=== PATIENT | female | born 1950 | race Two or more races ===

== ENCOUNTER 2024-01-05 14:35 | Inpatient (IN) | payer MEDICARE, OTHER ==
[~2024-01-05] VITALS: Ht 160 cm; Wt 57.7 kg
[2024-01-05 16:06] LABS: Basophils # (auto) 0 10 ^3/uL (0-0.2); Basophils % (auto) 0.3 % (0.0-2.0); Eosinophils # (auto) 0 10 ^3/uL (0-0.8); Hematocrit 30.6 % (36.0-46.0); Hemoglobin 9.9 g/dL (12.2-16.2); Lymphocytes # (auto) 0.4 10 ^3/uL (0.4-5.4); Lymphocytes % (auto) 3.4 % (10.0-50.0); Mean Corpuscular Hemoglobin 29.3 pg (28.0-32.0); Mean Corpuscular Hgb Conc. 32.3 g/dL (32.0-36.0); Mean Corpuscular Volume 90.9 fL (80.0-100.0); Monocytes # (auto) 0.4 10 ^3/uL (0-1.3); Monocytes % (auto) 3.7 % (0.0-12.0); Neutrophils # (auto) 10.4 10 ^3/uL (1.6-8.6); Neutrophils % (auto) 92.6 % (37.0-80.0); Red Blood Cells 3.37 10^6/uL (4.0-5.20); Red Cell Distribution Width 19.3 % (11.8-14.3); White Blood Cell 11.3 10^3/uL (4.4-10.8)
[2024-01-05 16:27] LABS: Alanine Aminotransferase 28 U/L (7-40); Albumin 4.3 g/dL (3.2-4.8); Alkaline Phosphatase 78 U/L (46-116); Anion Gap 6 (5-15); Aspartate Aminotransferase 19 U/L (13-40); BUN/Creatinine Ratio 14.6 (10.0-20.0); Bilirubin, Total 1.1 mg/dL (0.2-1.0); Blood Urea Nitrogen 14 mg/dL (9-23); Calcium 9.6 mg/dL (8.5-10.1); Carbon Dioxide 25 mmol/L (20-30); Chloride 106 mmol/L (98-107); Glucose 124 mg/dL (74-106); Sodium 137 mmol/L (136-145); Total Protein 7.9 g/dL (5.7-8.2)
[2024-01-05 16:35] LABS: Urine Bacteria None Seen /hpf (None Seen)
[2024-01-05 16:44] LABS: Urine Blood Negative /uL (Negative); Urine Clarity Clear (Clear); Urine Color Yellow (Yellow); Urine Protein, UAD TRACE (Negative); Urine Specific Gravity 1.015 (1.001-1.035); Urine Urobilinogen 2 mg/dL (Negative); Urine WBC 1 /hpf (0 - 5)
[2024-01-05] MEDS: IOHEXOL 350 MG/ML 100ML IJ ONE (17:33)
[2024-01-05] MEDS: FUROSEMIDE 40 MG/4 ML VIAL IV ONE (22:45)
[2024-01-05] MEDS ORDERED: ONDANSETRON HCL 4 MG/2 ML VIAL IV PRN (23:15)
[2024-01-05] MEDS ORDERED: DOCUSATE SOD 100 MG CAP PO PRN (23:15)
[2024-01-05] MEDS ORDERED: ACETAMINOPHEN 325 MG TAB PO PRN (23:15)
[2024-01-05] MEDS ORDERED: HYDROcodone-ACET 5/325MG TAB PO PRN (23:15)
[2024-01-06] MEDS ORDERED: DEXTROSE (50%) 50ML SYRG IV PRN
[2024-01-06] MEDS ORDERED: NITROGLYCERIN 0.4 MG SL TAB SL PRN
[2024-01-06 03:03] LABS: Basophils # (auto) 0 10 ^3/uL (0-0.2); Eosinophils # (auto) 0 10 ^3/uL (0-0.8); Hemoglobin 8.4 g/dL (12.2-16.2); Lymphocytes # (auto) 0.7 10 ^3/uL (0.4-5.4); Lymphocytes % (auto) 6.9 % (10.0-50.0); Monocytes # (auto) 0.8 10 ^3/uL (0-1.3); Red Blood Cells 2.81 10^6/uL (4.0-5.20)
[2024-01-06 03:04] LABS: Basophils % (auto) 0.3 % (0.0-2.0); Hematocrit 25.3 % (36.0-46.0); Mean Corpuscular Hemoglobin 29.9 pg (28.0-32.0); Mean Corpuscular Hgb Conc. 33.1 g/dL (32.0-36.0); Mean Corpuscular Volume 90.3 fL (80.0-100.0); Monocytes % (auto) 8.6 % (0.0-12.0); Neutrophils # (auto) 8.1 10 ^3/uL (1.6-8.6); Neutrophils % (auto) 84.2 % (37.0-80.0); Red Cell Distribution Width 19.2 % (11.8-14.3); White Blood Cell 9.6 10^3/uL (4.4-10.8)
[2024-01-06 03:08] LABS: Alanine Aminotransferase 20 U/L (7-40); Albumin 3.8 g/dL (3.2-4.8); Alkaline Phosphatase 62 U/L (46-116); Anion Gap 10 (5-15); Aspartate Aminotransferase 11 U/L (13-40); BUN/Creatinine Ratio 17.7 (10.0-20.0); Bilirubin, Total 1.1 mg/dL (0.2-1.0); Blood Urea Nitrogen 17 mg/dL (9-23); Calcium 9.4 mg/dL (8.7-10.4); Carbon Dioxide 22 mmol/L (20-30); Chloride 107 mmol/L (98-107); Glucose 126 mg/dL (74-106); Sodium 139 mmol/L (136-145); Total Protein 7.2 g/dL (5.7-8.2)
[2024-01-06] MEDS: AZITHROMYCIN 500MG/ 250ML 250 ML IV ONE (06:33)
[2024-01-06] MEDS: SODIUM CHLOR 0.9% PF (SALINE LOCK) 10ML VIAL/SYR IV SCH (06:33)
[2024-01-06] MEDS: InsuLIN REG 1unit/0.01ml Soln (100units/ml) SC SCH (07:00)
[2024-01-06] MEDS: ACCU-CHEK COMFORT CURVE STRIP VI SCH (07:07)
[2024-01-06 09:16] LABS: Magnesium 1.7 mg/dL (1.6-2.6)
[2024-01-06 09:17] LABS: Phosphorus 3.6 mg/dL (2.4-5.1)
[2024-01-06 09:27] LABS: Thyroid Stimulating Hormone 9.01 uIU/mL (0.55-4.78)
[2024-01-06] MEDS ORDERED: FUROSEMIDE 40 MG/4 ML VIAL IV SCH ×2 (10:00)
[2024-01-06] MEDS ORDERED: FAMOTIDINE (10MG/ML) 2ML VL IV SCH (10:00)
[2024-01-06] MEDS ORDERED: ASPirin 81 mg TAB PO SCH (10:00)
[2024-01-06] MEDS ORDERED: CARVEDILOL 3.125 MG TAB PO SCH (10:00)
[2024-01-06 12:12] LABS: % Iron Saturation 9.7 % (15-50)
[2024-01-06] MEDS ORDERED: MORPHINE SULFATE INJ 2 MG/ml SYRG IV PRN ×2 (16:00)
[2024-01-06 20:00] VITALS: PULSE 70
[2024-01-06 20:04] VITALS: BP 103/48; PULSE 74; RESP 20; TEMP 98.2; O2SAT 96
[2024-01-06] MEDS ORDERED: SILD50TA PO (21:10)
[2024-01-06] MEDS ORDERED: LOSA-534 PO (21:10)
[2024-01-06] MEDS ORDERED: NIFE1TAB31 PO (21:10)
[2024-01-06 21:11] VITALS: PULSE 74; RESP 20; O2SAT 96
[2024-01-06] MEDS ORDERED: InsuLIN REG 1unit/0.01ml Soln (100units/ml) SC SCH (22:00)
[2024-01-06] MEDS: ENOXAPARIN SOD 30 MG/0.3 ML SYRINGE IV ONE (22:12)
[2024-01-06] MEDS ORDERED: AZITHROMYCIN 500MG/ 250ML 250 ML IV SCH (23:00)
[2024-01-07] VITALS (9 sets, daily range): BP systolic 99–125; BP diastolic 53–68; PULSE 61–74; RESP 16–18; TEMP 97.8–98.5; O2SAT 92–96
[2024-01-07] MEDS ORDERED: PNEUMOCOCCAL VACC POLYS 25 MCG/0.5 ML VIAL IM ONE (08:00)
[2024-01-07 08:07] LABS: Haptoglobin 53 mg/dL (42-346)
[2024-01-07 08:59] LABS: Basophils # (auto) 0 10 ^3/uL (0-0.2); Eosinophils # (auto) 0.1 10 ^3/uL (0-0.8); Monocytes # (auto) 0.4 10 ^3/uL (0-1.3)
[2024-01-07 09:02] LABS: Basophils % (auto) 0.6 % (0.0-2.0); Eosinophils % (auto) 1.9 % (0.0-7.0); Hematocrit 24.8 % (36.0-46.0); Hemoglobin 8.2 g/dL (12.2-16.2); Lymphocytes % (auto) 27.7 % (10.0-50.0); Mean Corpuscular Hemoglobin 30.5 pg (28.0-32.0); Mean Corpuscular Volume 92.4 fL (80.0-100.0); Monocytes % (auto) 11.3 % (0.0-12.0); Neutrophils % (auto) 58.5 % (37.0-80.0); Nucleated Red Blood Cells % 0.1 %; Red Blood Cells 2.69 10^6/uL (4.0-5.20); Red Cell Distribution Width 19.2 % (11.8-14.3); White Blood Cell 3.4 10^3/uL (4.4-10.8)
[2024-01-07] MEDS: ENOXAPARIN SOD 30 MG/0.3 ML SYRINGE SC SCH (10:03)
[2024-01-07] MEDS: SODIUM FERR GLUC 62.5MG/5ML 110 ML IV SCH (12:40)
[2024-01-07] MEDS: LEVOTHYROXINE SODIUM 25 MCG TAB PO ONE (12:41)
[2024-01-08] VITALS (7 sets, daily range): BP systolic 87–105; BP diastolic 46–60; PULSE 63–78; RESP 16–18; TEMP 97.6–98.2; O2SAT 90–97
[2024-01-08] MEDS: LEVOTHYROXINE SODIUM 25 MCG TAB PO SCH (05:44)
[2024-01-08 06:18] LABS: Triglycerides 49 mg/dL (< 150)
[2024-01-08 06:19] LABS: Cholesterol 96 mg/dL (< 200); LDL Cholesterol 46 mg/dL (< 100)
[2024-01-08 06:20] LABS: HDL Cholesterol 38 mg/dL (40-59)
[2024-01-08] MEDS: ENOXAPARIN SOD 40 MG/0.4 ML SYRINGE SC SCH (11:43)
[2024-01-09] VITALS (8 sets, daily range): BP systolic 93–102; BP diastolic 45–54; PULSE 53–97; RESP 14–20; TEMP 98.1–98.7; O2SAT 94–96
[2024-01-09 06:56] LABS: Basophils # (auto) 0 10 ^3/uL (0-0.2); Basophils % (auto) 0.8 % (0.0-2.0); Eosinophils # (auto) 0 10 ^3/uL (0-0.8); Eosinophils % (auto) 1.4 % (0.0-7.0); Hematocrit 26.2 % (36.0-46.0); Hemoglobin 8.5 g/dL (12.2-16.2); Lymphocytes # (auto) 0.9 10 ^3/uL (0.4-5.4); Lymphocytes % (auto) 29.5 % (10.0-50.0); Mean Corpuscular Hemoglobin 30.3 pg (28.0-32.0); Mean Corpuscular Hgb Conc. 32.3 g/dL (32.0-36.0); Mean Corpuscular Volume 93.9 fL (80.0-100.0); Monocytes # (auto) 0.4 10 ^3/uL (0-1.3); Monocytes % (auto) 11.3 % (0.0-12.0); Neutrophils # (auto) 1.8 10 ^3/uL (1.6-8.6); Nucleated Red Blood Cells % 0.2 %; Red Blood Cells 2.79 10^6/uL (4.0-5.20); Red Cell Distribution Width 19.3 % (11.8-14.3); White Blood Cell 3.1 10^3/uL (4.4-10.8)
[2024-01-09 07:40] LABS: Anion Gap 6 (5-15); Calcium 9.2 mg/dL (8.5-10.1); Carbon Dioxide 24 mmol/L (20-30); Chloride 111 mmol/L (98-107); Potassium 4.2 mmol/L (3.5-5.1); Sodium 141 mmol/L (136-145)
[2024-01-09 07:46] LABS: Glucose 93 mg/dL (74-106)
[2024-01-09 07:47] LABS: Blood Urea Nitrogen 18 mg/dL (9-23)
[2024-01-09 08:08] LABS: BUN/Creatinine Ratio 17.5 (10.0-20.0)
[2024-01-09 09:11] LABS: Hepatitis B Surface Antigen Negative (Negative)
[2024-01-09 09:36] LABS: Hepatitis C Antibody Negative (Negative)
[2024-01-09] MEDS: PANTOPRAZOLE 40 MG/10 ML VIAL INJ IV SCH (10:03)
[2024-01-09 14:53] LABS: Base Excess -2.7 mmol/L (-2.0-2.0)
[2024-01-10 01:00] VITALS: BP 116/56; PULSE 57; RESP 17; TEMP 97.5; O2SAT 92
[2024-01-10 05:00] VITALS: BP 112/57; PULSE 62; RESP 17; TEMP 97.5; O2SAT 94
[2024-01-10 07:10] LABS: Anion Gap 7 (5-15); Basophils # (auto) 0 10 ^3/uL (0-0.2); Basophils % (auto) 1.1 % (0.0-2.0); Calcium 9.2 mg/dL (8.7-10.4); Carbon Dioxide 25 mmol/L (20-30); Chloride 111 mmol/L (98-107); Eosinophils # (auto) 0.1 10 ^3/uL (0-0.8); Eosinophils % (auto) 3.2 % (0.0-7.0); Hematocrit 26.7 % (36.0-46.0); Hemoglobin 8.7 g/dL (12.2-16.2); Lymphocytes # (auto) 0.8 10 ^3/uL (0.4-5.4); Lymphocytes % (auto) 27.2 % (10.0-50.0); Mean Corpuscular Hemoglobin 30.2 pg (28.0-32.0); Mean Corpuscular Hgb Conc. 32.7 g/dL (32.0-36.0); Mean Corpuscular Volume 92.3 fL (80.0-100.0); Monocytes # (auto) 0.4 10 ^3/uL (0-1.3); Monocytes % (auto) 11.3 % (0.0-12.0); Neutrophils # (auto) 1.8 10 ^3/uL (1.6-8.6); Neutrophils % (auto) 57.2 % (37.0-80.0); Nucleated Red Blood Cells % 0.4 %; Potassium 4.1 mmol/L (3.5-5.1); Red Cell Distribution Width 18.5 % (11.8-14.3); Sodium 143 mmol/L (136-145); White Blood Cell 3.1 10^3/uL (4.4-10.8)
[2024-01-10 07:16] LABS: BUN/Creatinine Ratio 15.1 (10.0-20.0); Blood Urea Nitrogen 14 mg/dL (9-23); Glucose 86 mg/dL (74-106); Magnesium 1.8 mg/dL (1.6-2.6)
[2024-01-10 08:00] VITALS: PULSE 61; RESP 16
[2024-01-10 08:52] VITALS: BP 108/49; PULSE 61; RESP 16; TEMP 97; O2SAT 92
[2024-01-10 12:44] VITALS: BP 98/46; PULSE 53; RESP 15; TEMP 98; O2SAT 98
[2024-01-10] MEDS ORDERED: PANT40T PO ×2 (14:15→14:17)
[2024-01-10] MEDS ORDERED: FER325T PO ×2 (14:15→14:17)
[2024-01-10] MEDS ORDERED: LEVO75TA6 PO (14:20)
[2024-01-10 16:39] VITALS: BP 110/55; PULSE 55; RESP 17; TEMP 98; O2SAT 92
[2024-01-11] MEDS ORDERED: IRON SUCROSE COMPLEX 100 ML IV SCH (12:00)
== END 2024-01-10 18:45 | disposition home or self-care (01) | DRG 811 ==
LOC: ER 14:35 → TELE 23:49 → TELE-E-ADS 01-06 20:04 → TELE-WESTW 01-07 07:22 → WEST WING 01-07 11:57
PROVIDERS: ADMIT Internal Medicine; ATTEND Internal Medicine
DX: D50.9 Iron deficiency anemia, unspecified (principal); I50.33 Acute on chronic diastolic (congestive) heart failure; J96.01 Acute respiratory failure with hypoxia; J98.11 Atelectasis; I11.0 Hypertensive heart disease with heart failure; I27.20 Pulmonary hypertension, unspecified; E11.9 Type 2 diabetes mellitus without complications; M19.09 Primary osteoarthritis, other specified site; Z82.49 Family history of ischemic heart disease and other diseases of the circulatory system; Z83.3 Family history of diabetes mellitus; D72.829 Elevated white blood cell count, unspecified
CPT/HCPCS: 36415; 36600; 71045; 71275; 76536; 80048; 80053; 80061; 81001; 82270; 82306; 82533; 82550; 82728; 82805; 82962; 83010; 83036; 83540; 83550; 83615; 83735; 83880; 84100; 84439; 84443; 84481; 84484; 85025; 85045; 85379; 86803; 86880; 86885; 87340; 93005; 93306; 93970; 97110; 97116; 97163; C9113; G0378

== ENCOUNTER → 2024-01-24 | Outpatient (CLI) | payer MEDICARE, OTHER ==
[~2024-01-24] MED LIST: FER325T PO; LEVO75TA6 PO; LOSA-534 PO; NIFE1TAB31 PO; PANT40T PO; SILD50TA PO
[2024-01-24 12:00] LABS: Basophils # (auto) 0 10 ^3/uL (0-0.2); Basophils % (auto) 0.9 % (0.0-2.0); Eosinophils # (auto) 0.1 10 ^3/uL (0-0.8); Eosinophils % (auto) 1.8 % (0.0-7.0); Hematocrit 27.9 % (36.0-46.0); Hemoglobin 9.1 g/dL (12.2-16.2); Lymphocytes # (auto) 0.7 10 ^3/uL (0.4-5.4); Lymphocytes % (auto) 20.6 % (10.0-50.0); Mean Corpuscular Hemoglobin 31.3 pg (28.0-32.0); Mean Corpuscular Hgb Conc. 32.5 g/dL (32.0-36.0); Mean Corpuscular Volume 96.3 fL (80.0-100.0); Monocytes # (auto) 0.2 10 ^3/uL (0-1.3); Monocytes % (auto) 7.2 % (0.0-12.0); Neutrophils # (auto) 2.3 10 ^3/uL (1.6-8.6); Neutrophils % (auto) 69.5 % (37.0-80.0); Nucleated Red Blood Cells % 0.3 %; Red Blood Cells 2.89 10^6/uL (4.0-5.20); Red Cell Distribution Width 19.5 % (11.8-14.3); White Blood Cell 3.3 10^3/uL (4.4-10.8)
[2024-01-24 12:08] LABS: Alanine Aminotransferase 34 U/L (7-40); Albumin 3.6 g/dL (3.2-4.8); Alkaline Phosphatase 66 U/L (46-116); Anion Gap 5 (5-15); Aspartate Aminotransferase 21 U/L (13-40); BUN/Creatinine Ratio 21.6 (10.0-20.0); Blood Urea Nitrogen 21 mg/dL (9-23); Calcium 9.2 mg/dL (8.7-10.4); Carbon Dioxide 25 mmol/L (20-30); Chloride 110 mmol/L (98-107); Glucose 103 mg/dL (74-106); Potassium 4.7 mmol/L (3.5-5.1); Sodium 140 mmol/L (136-145)
[2024-01-24 12:09] LABS: Bilirubin, Total 0.6 mg/dL (0.2-1.0); Total Protein 6.9 g/dL (5.7-8.2)
== END | disposition home or self-care (01) ==
LOC: LAB 11:10
PROVIDERS: ATTEND Student in an Organized Health Care Education/Training Program
DX: J96.11 Chronic respiratory failure with hypoxia (principal); I27.20 Pulmonary hypertension, unspecified; D50.9 Iron deficiency anemia, unspecified; R53.81 Other malaise
CPT/HCPCS: 36415; 80053; 84439; 84443; 85025

== ENCOUNTER → 2024-02-07 | Outpatient (CLI) | payer MEDICARE, OTHER ==
[~2024-02-07] MED LIST changes: +ALBUTEROL SULF 2.5 MG/0.5ML(0.5%) NEB SOLN ONE
== END | disposition home or self-care (01) ==
LOC: RT 08:04
PROVIDERS: ATTEND Internal Medicine Pulmonary Disease
DX: J44.9 Chronic obstructive pulmonary disease, unspecified (principal)
CPT/HCPCS: 94060

== ENCOUNTER 2024-02-20 18:22 | Inpatient (IN) | payer MEDICARE, OTHER ==
[~2024-02-20] VITALS: Ht 157.5 cm; Wt 52.4 kg
[~2024-02-20 18:22] MED LIST changes: -ALBUTEROL SULF 2.5 MG/0.5ML(0.5%) NEB SOLN ONE
[2024-02-20 19:44] LABS: Base Excess -3.2 mmol/L (-2.0-2.0)
[2024-02-20 21:06] LABS: Basophils # (auto) 0 10 ^3/uL (0-0.2); Basophils % (auto) 0.4 % (0.0-2.0); Eosinophils # (auto) 0.1 10 ^3/uL (0-0.8); Eosinophils % (auto) 0.9 % (0.0-7.0); Hematocrit 29.4 % (36.0-46.0); Hemoglobin 9.7 g/dL (12.2-16.2); Lymphocytes # (auto) 0.5 10 ^3/uL (0.4-5.4); Lymphocytes % (auto) 8.9 % (10.0-50.0); Mean Corpuscular Hgb Conc. 33.2 g/dL (32.0-36.0); Mean Corpuscular Volume 96.3 fL (80.0-100.0); Monocytes # (auto) 0.4 10 ^3/uL (0-1.3); Neutrophils # (auto) 5.1 10 ^3/uL (1.6-8.6); Neutrophils % (auto) 83.8 % (37.0-80.0); Red Blood Cells 3.05 10^6/uL (4.0-5.20); Red Cell Distribution Width 17.1 % (11.8-14.3); White Blood Cell 6.1 10^3/uL (4.4-10.8)
[2024-02-20 21:07] LABS: Alanine Aminotransferase 30 U/L (7-40); Albumin 3.8 g/dL (3.2-4.8); Alkaline Phosphatase 82 U/L (46-116); Anion Gap 9 (5-15); Aspartate Aminotransferase 34 U/L (13-40); BUN/Creatinine Ratio 28.4 (10.0-20.0); Blood Urea Nitrogen 29 mg/dL (9-23); Calcium 8.9 mg/dL (8.7-10.4); Carbon Dioxide 21 mmol/L (20-30); Chloride 110 mmol/L (98-107); Glucose 113 mg/dL (74-106); Potassium 4.5 mmol/L (3.5-5.1); Sodium 140 mmol/L (136-145)
[2024-02-20 21:08] LABS: Bilirubin, Total 0.7 mg/dL (0.2-1.0); Total Protein 6.6 g/dL (5.7-8.2)
[2024-02-20 21:26] LABS: INR 1.09 (0.9-1.15); Partial Thromboplastin Time 28.4 SEC (24.5-34.5); Prothrombin Time 11.5 sec (9.3-11.8)
[2024-02-21] VITALS (8 sets, daily range): BP systolic 96–118; BP diastolic 47–69; PULSE 55–68; RESP 11–18; TEMP 98.3; O2SAT 86–100
[2024-02-21] MEDS: PANTOPRAZOLE 40 MG/10 ML VIAL INJ IV ONE (03:05)
[2024-02-21] MEDS: ONDANSETRON HCL 4 MG/2 ML VIAL IV ONE (03:06)
[2024-02-21] MEDS: PIPERACILLIN-TAZOB 3.375GM 100 ML IV ONE (03:06)
[2024-02-21] MEDS: IOHEXOL 300 MG/ML 100ML BOTTLE IJ ONE (05:14)
[2024-02-21] MEDS ORDERED: ONDANSETRON HCL 4 MG/2 ML VIAL IV PRN (05:45)
[2024-02-21] MEDS ORDERED: MORPHINE SULFATE INJ 2 MG/ml SYRG IV PRN (05:45)
[2024-02-21] MEDS ORDERED: ACETAMINOPHEN 325 MG TAB PO PRN (05:45)
[2024-02-21] MEDS ORDERED: NITROGLYCERIN 0.4 MG SL TAB SL PRN (05:45)
[2024-02-21] MEDS: FUROSEMIDE 20 MG/2 ML VIAL IV SCH (06:12)
[2024-02-21] MEDS: GABAPENTIN 300 MG CAP PO SCH (06:12)
[2024-02-21] MEDS: PANTOPRAZOLE 40 MG TAB PO SCH (06:12)
[2024-02-21] MEDS: LEVOTHYROXINE SODIUM 25 MCG TAB PO SCH (06:12)
[2024-02-21] MEDS: ALBUTEROL SULF 2.5 MG/0.5ML(0.5%) NEB SOLN NEB PRN (07:59)
[2024-02-21 08:01] LABS: Urine Bacteria None Seen /hpf (None Seen)
[2024-02-21 08:11] LABS: Urine Blood Negative /uL (Negative); Urine Clarity Clear (Clear); Urine Color Light-Yellow (Yellow); Urine Hyaline Cast FEW /lpf (0 - 2); Urine Protein, UAD Negative (Negative); Urine Specific Gravity 1.023 (1.001-1.035); Urine Urobilinogen Normal (Negative); Urine WBC <1 /hpf (0 - 5)
[2024-02-21] MEDS: NIFEdipine ER 30 MG TAB PO SCH (10:00)
[2024-02-21] MEDS: ASPirin 81 mg TAB PO SCH (10:21)
[2024-02-21] MEDS: ENOXAPARIN SOD 40 MG/0.4 ML SYRINGE SC SCH (10:21)
[2024-02-22] VITALS (11 sets, daily range): BP systolic 97–127; BP diastolic 54–71; PULSE 61–81; RESP 15–20; TEMP 98–98.7; O2SAT 90–95
[2024-02-22 06:26] LABS: Basophils # (auto) 0 10 ^3/uL (0-0.2); Basophils % (auto) 1.1 % (0.0-2.0); Eosinophils # (auto) 0.1 10 ^3/uL (0-0.8); Eosinophils % (auto) 2.8 % (0.0-7.0); Hematocrit 29.2 % (36.0-46.0); Hemoglobin 9.7 g/dL (12.2-16.2); Lymphocytes # (auto) 0.7 10 ^3/uL (0.4-5.4); Mean Corpuscular Hemoglobin 31.8 pg (28.0-32.0); Mean Corpuscular Hgb Conc. 33.3 g/dL (32.0-36.0); Mean Corpuscular Volume 95.6 fL (80.0-100.0); Monocytes # (auto) 0.3 10 ^3/uL (0-1.3); Monocytes % (auto) 7.9 % (0.0-12.0); Neutrophils # (auto) 2.5 10 ^3/uL (1.6-8.6); Neutrophils % (auto) 69.2 % (37.0-80.0); Nucleated Red Blood Cells % 0.1 %; Red Blood Cells 3.06 10^6/uL (4.0-5.20); Red Cell Distribution Width 16.8 % (11.8-14.3); White Blood Cell 3.6 10^3/uL (4.4-10.8)
[2024-02-22 06:39] LABS: Alanine Aminotransferase 21 U/L (7-40); Albumin 3.4 g/dL (3.2-4.8); Alkaline Phosphatase 68 U/L (46-116); Anion Gap 9 (5-15); Aspartate Aminotransferase 16 U/L (13-40); BUN/Creatinine Ratio 19.1 (10.0-20.0); Blood Urea Nitrogen 25 mg/dL (9-23); Calcium 8.8 mg/dL (8.7-10.4); Carbon Dioxide 23 mmol/L (20-30); Chloride 108 mmol/L (98-107); Glucose 111 mg/dL (74-106); Potassium 4.5 mmol/L (3.5-5.1); Sodium 140 mmol/L (136-145)
[2024-02-22 06:40] LABS: Bilirubin, Total 0.7 mg/dL (0.2-1.0); Total Protein 6.5 g/dL (5.7-8.2)
[2024-02-22] MEDS: FUROSEMIDE 20 MG TAB PO SCH (09:44)
[2024-02-22] MEDS ORDERED: SILDENAFIL CITRATE 20 MG TAB PO SCH (10:00)
[2024-02-22] MEDS: SILDENAFIL CITRATE 20 MG TAB PO SCH (13:23)
[2024-02-22] MEDS ORDERED: SERT-206 PO (15:17)
[2024-02-22] MEDS ORDERED: TRAZ-228 PO (15:17)
[2024-02-22] MEDS ORDERED: GABA-1250 PO (15:17)
[2024-02-23] VITALS (8 sets, daily range): BP systolic 102–122; BP diastolic 53–69; PULSE 62–93; RESP 12–17; TEMP 97.7–98.3; O2SAT 92–97
[2024-02-23 06:16] LABS: Basophils # (auto) 0 10 ^3/uL (0-0.2); Basophils % (auto) 0.9 % (0.0-2.0); Eosinophils # (auto) 0.1 10 ^3/uL (0-0.8); Eosinophils % (auto) 3.1 % (0.0-7.0); Hematocrit 28.5 % (36.0-46.0); Hemoglobin 9.4 g/dL (12.2-16.2); Lymphocytes # (auto) 0.7 10 ^3/uL (0.4-5.4); Lymphocytes % (auto) 19.5 % (10.0-50.0); Mean Corpuscular Hemoglobin 31.3 pg (28.0-32.0); Mean Corpuscular Hgb Conc. 33.1 g/dL (32.0-36.0); Mean Corpuscular Volume 94.5 fL (80.0-100.0); Monocytes # (auto) 0.4 10 ^3/uL (0-1.3); Monocytes % (auto) 9.9 % (0.0-12.0); Neutrophils # (auto) 2.4 10 ^3/uL (1.6-8.6); Neutrophils % (auto) 66.6 % (37.0-80.0); Red Blood Cells 3.02 10^6/uL (4.0-5.20); Red Cell Distribution Width 16.5 % (11.8-14.3); White Blood Cell 3.7 10^3/uL (4.4-10.8)
[2024-02-23 06:32] LABS: Anion Gap 8 (5-15); Carbon Dioxide 24 mmol/L (20-30); Chloride 108 mmol/L (98-107); Potassium 4.2 mmol/L (3.5-5.1); Sodium 140 mmol/L (136-145)
[2024-02-23 06:33] LABS: Calcium 8.9 mg/dL (8.7-10.4)
[2024-02-23 06:38] LABS: BUN/Creatinine Ratio 28.7 (10.0-20.0); Blood Urea Nitrogen 31 mg/dL (9-23); Glucose 103 mg/dL (74-106)
[2024-02-23 09:05] LABS: Hepatitis B Surface Antigen Negative (Negative)
[2024-02-23 09:27] LABS: Hepatitis C Antibody Negative (Negative)
[2024-02-23] MEDS ORDERED: ASPI-325 PO (12:09)
[2024-02-23] MEDS ORDERED: LEV25T PO (12:09)
[2024-02-23] MEDS ORDERED: FUR20T PO (12:09)
[2024-02-23] MEDS ORDERED: SILD20TA PO (12:09)
== END 2024-02-23 16:30 | disposition home or self-care (01) | DRG 682 ==
LOC: EDBD 18:22 → ER 18:31 → EDUNIT# 02-21 05:42 → TELE 02-21 05:42 → TELE-CENTR 02-21 17:55
PROVIDERS: ADMIT Internal Medicine Geriatric Medicine; ATTEND Internal Medicine Geriatric Medicine
DX: N17.0 Acute kidney failure with tubular necrosis (principal); I50.33 Acute on chronic diastolic (congestive) heart failure; J96.21 Acute and chronic respiratory failure with hypoxia; L03.116 Cellulitis of left lower limb; L03.115 Cellulitis of right lower limb; J44.1 Chronic obstructive pulmonary disease with (acute) exacerbation; R18.8 Other ascites; I31.39 Other pericardial effusion (noninflammatory); I11.0 Hypertensive heart disease with heart failure; I95.1 Orthostatic hypotension; E11.9 Type 2 diabetes mellitus without complications; I27.20 Pulmonary hypertension, unspecified; E03.9 Hypothyroidism, unspecified; F32.A Depression, unspecified; N28.89 Other specified disorders of kidney and ureter; K76.89 Other specified diseases of liver; Z87.11 Personal history of peptic ulcer disease; Z82.49 Family history of ischemic heart disease and other diseases of the circulatory system; Z83.3 Family history of diabetes mellitus; Z99.81 Dependence on supplemental oxygen
CPT/HCPCS: 36415; 36600; 71046; 78582; 80048; 80053; 81001; 82805; 83880; 84443; 84484; 85025; 85379; 85610; 85730; 86803; 87340; 93005; 93306; 93886; 93970; 94640; 99291; G0378; J2405; J2470; J2543